=== PATIENT | female | born 1985 | race African-American/Black ===

== ENCOUNTER 2023-08-21 20:10 | Emergency (ER) | payer MEDICAID, SELFPAY ==
[2023-08-21 21:02] VITALS: BP 125/64; PULSE 98; RESP 18; TEMP 37.4; O2SAT 97; BMI 19.0
[2023-08-21 21:26] LABS: Basophils Percent Auto 0.3 % (0-2); Eosinophils Percent Auto 0.4 % (0-4); Hematocrit 36.7 % (37.0-47.0); Hemoglobin 12.2 g/dl (12.0-16.0); Imm Gran Abs Auto 0.02 X10*3/uL (0.00-0.03); Imm Gran Pct Auto 0.3 % (0.0-0.4); Lymphocytes Absolute Auto 0.8 X10*3/uL (1.2-4.9); Lymphocytes Percent Auto 10.7 % (20-40); MANUAL DIFF FLAG NO; Mean Corpuscular HGB Conc 33.2 g/dl (31.0-35.0); Mean Corpuscular Hemoglobin 26.9 pg (27.0-33.0); Mean Corpuscular Volume 80.8 fL (80.0-98.0); Mean Platelet Volume 9.2 fL (9.4-12.3); Monocytes Absolute Auto 1.3 X10*3/uL (0.1-1.2); Monocytes Percent Auto 16.8 % (2-11); Neutrophils Absolute Auto 5.5 x10*3/uL (2.0-8.3); Neutrophils Percent Auto 71.5 % (45-73); Platelet Count 183 X10*3/uL (160-400); Red Blood Count 4.54 X10*6/uL (4.20-5.50); Red Cell Distribution Width 14.5 % (11.0-16.0); White Blood Count 7.7 X10*3/uL (4.8-10.8)
[2023-08-21 21:35] LABS: IDNOW Serial# 08D9AD1C; Strep A Nucleic Acid Negative (Negative)
[2023-08-21 21:39] LABS: Alanine Aminotransferase 7 U/L (0-31); Albumin Level 3.6 g/dL (3.5-5.0); Alkaline Phosphatase 45 U/L (39-117); Anion Gap 16 (12-20); Aspartate Amino Transferase 15 U/L (5-31); Bilirubin Total 0.5 mg/dL (0.0-1.0); Blood Urea Nitrogen 9 mg/dL (9-16); COVID-19 Test Negative (Negative); Calcium 8.8 mg/dL (8.4-10.2); Carbon Dioxide 24 mmol/L (22-29); Chloride 100 mmol/L (96-108); Creatinine Clr Calc Pharmacy 99.1; Estimated Glomerular Filt Rate > 60; Glucose Random 153 mg/dL (60-115); IDNOW Serial# BCCEAD1C; Potassium 3.7 mmol/L (3.3-5.1); Sodium 136 mmol/L (135-145); Total Protein 6.9 g/dL (6.5-8.0)
--- NOTE | 2023-08-21 22:40 | ED_ITS ---
HPI - General Adult General Chief complaint: General Medical Stated complaint: Swollen lymph nodes, fever Time Seen by Provider: 08/21/23 22:40 Source: patient Mode of arrival: ambulatory Limitations: no limitations History of Present Illness HPI narrative: Patient's sore throat low-grade fever painful to swallow for last 3 days complaining of lymph nodes enlarged in the neck area no running nose no shortness of breath no significant cough no other family member sick patient has no nausea/vomiting/diarrhea patient had aseptic meningitis about 10 years ago and she is worried about same Related Data Previous Rx's Medication Instructions Recorded acetaminophen 500 mg tablet 500 mg PO Q6H PRN fever or pain 08/22/23 (Tylenol Extra Strength) #30 tabs amoxicillin 875 mg-potassium 1 tab PO BID #20 tabs 08/22/23 clavulanate 125 mg tablet Allergies Allergy/AdvReac Type Severity Reaction Status Date / Time No Known Allergies Allergy Verified 08/21/23 21:01 Review of Systems 2 Review of Systems: Yes all other systems are reviewed and are negative [facility] Social History Social History Alcohol intake: never Smoked in Last 30 Days: No Use of substances other than those prescribed or required for medical reasons: Yes Substance Use Type: Marijuana Advance Directives: No Advance Directives Information Provided: Yes Physical Exam ED Vital Signs: Vital Signs - 24 hr 08/21/23 21:02 08/21/23 23:31 08/22/23 02:30 Temperature 99.3 F 99.0 F 100.0 F Pulse Rate 98 90 101 H Respiratory Rate 18 16 16 Blood Pressure 125/64 97/65 109/53 L Pulse Oximetry 97 100 98 Oxygen Delivery Method Room Air Room Air Room Air BMI result Body Mass Index 19.0 Appearance: Alert. Oriented X3. No acute distress. Eyes: PERRLA, No Nystagmus ENT: Pharynx erythema. Oral Mucosa moist Neck: Normal inspection. Neck supple. Upper cervical lymphadenopathy neck is supple Kernig's negative CVS: Normal heart rate and rhythm. Pulses normal. Respiratory: No respiratory distress. Equal air entry bilateral, no wheezing/rales/rhonchi Abdomen: Soft and nontender. Bowel sounds are present, Skin: Skin warm and dry. Normal skin color. Normal skin turgor. Extremities: No lower extremity edema. No calf tenderness Neuro: Oriented X 3. No motor deficit. No sensory deficit.No cerebellar signs , cranial nerves II-XII intact Medications Administered Discontinued Medications Generic Name Dose Route Start Last Admin Trade Name Suzanne PRN Reason Stop Dose Admin Acetaminophen 650 mg 08/22/23 02:32 08/22/23 02:35 Acetaminophen 325 Mg Tablet PO 08/22/23 02:33 650 mg ONCE ONE Administration Amoxicillin/Clavulanate Potassium 875 mg 08/21/23 23:25 08/22/23 00:07 Amoxicillin/Potassium Clav 875 Mg Tablet PO 08/21/23 23:26 875 mg ONCE ONE Administration Ondansetron HCl 4 mg 08/22/23 02:05 08/22/23 02:27 Ondansetron Odt 4 Mg Tab.Rapdis TRANSLINGU 08/22/23 02:06 4 mg ONCE ONE Administration Medical Decision Making Lab Data [facility] Lab Attestation statement: I reviewed the patient's lab results. 08/21/23 21:19 08/21/23 21:19 Labs: Lab Results 08/21/23 08/21/23 Range/Units 21:19 23:36 WBC 7.7 (4.8-10.8) X10*3/uL RBC 4.54 (4.20-5.50) X10*6/uL Hgb 12.2 (12.0-16.0) g/dl Hct 36.7 L (37.0-47.0) % MCV 80.8 (80.0-98.0) fL MCH 26.9 L (27.0-33.0) pg MCHC 33.2 (31.0-35.0) g/dl RDW 14.5 (11.0-16.0) % Plt Count 183 (160-400) X10*3/uL MPV 9.2 L (9.4-12.3) fL Immature Gran % (Auto) 0.3 (0.0-0.4) % Neut % (Auto) 71.5 (45-73) % Lymph % (Auto) 10.7 L (20-40) % Mellette % (Auto) 16.8 H (2-11) % Eos % (Auto) 0.4 (0-4) % Baso % (Auto) 0.3 (0-2) % Lymph # (Auto) 0.8 L (1.2-4.9) X10*3/uL Mellette # (Auto) 1.3 H (0.1-1.2) X10*3/uL Eos # (Auto) 0.0 (0.0-0.4) X10*3/uL Baso # (Auto) 0.0 (0.0-0.2) X10*3/uL Abs Immat Gran (auto) 0.02 (0.00-0.03) X10*3/uL Absolute Neuts (auto) 5.5 (2.0-8.3) x10*3/uL Absolute Nucleated RBC 0.000 (0.0-0.012) X10*3/uL Nucleated RBC % (auto) 0.0 (0.0-0.2) /100WBC Sodium 136 (135-145) mmol/L Potassium 3.7 (3.3-5.1) mmol/L Chloride 100 (96-108) mmol/L Carbon Dioxide 24 (22-29) mmol/L Anion Gap 16 (12-20) BUN 9 (9-16) mg/dL Creatinine 0.73 (0.5-1.4) mg/dL Estim Creat Clear Calc 99.1 Estimated GFR > 60 Random Glucose 153 H (60-115) mg/dL Calcium 8.8 (8.4-10.2) mg/dL Total Bilirubin 0.5 (0.0-1.0) mg/dL AST 15 (5-31) U/L ALT 7 (0-31) U/L Alkaline Phosphatase 45 (39-117) U/L Total Protein 6.9 (6.5-8.0) g/dL Albumin 3.6 (3.5-5.0) g/dL COVID-19 (JAZMYNE) Negative (Negative) COVID-19 Clin Com See Note Monoscreen Negative (Negative) S. pyogenes GrpA CHERRI Negative (Negative) Discharge Plan Discharge Clinical Impression: Acute pharyngitis Patient Disposition: Home, Self-Care Instructions: Pharyngitis (ED) Additional Instructions: Drink plenty of fluids Take antibiotics as prescribed Follow with PCP if not better Prescriptions: New amoxicillin-pot clavulanate 875-125 mg tablet 1 tab PO BID Qty: 20 0RF acetaminophen [Tylenol Extra Strength] 500 mg tablet 500 mg PO Q6H PRN (Reason: fever or pain) Qty: 30 0RF Interventions: ED Discharge Assessment Last Done: 08/22/23 02:41 Discharge Date/Time: 08/22/23 02:43
[2023-08-21 23:31] VITALS: BP 97/65; PULSE 90; RESP 16; TEMP 37.2; O2SAT 100
[2023-08-21 23:56] LABS: Monotest Negative (Negative)
[2023-08-22] MEDS: Amoxicillin/Potassium Clav 875 MG TABLET PO (00:07)
[2023-08-22] MEDS: Ondansetron ODT 4 MG TAB.RAPDIS TRANSLINGU (02:27)
[2023-08-22 02:30] VITALS: BP 109/53; PULSE 101; RESP 16; TEMP 37.8; O2SAT 98
[2023-08-22] MEDS: Acetaminophen 325 MG TABLET 650 MG PO (02:35)
--- NOTE | 2023-08-22 02:42 | PC.NURSE ---
Dr. Espana informed of T 100.0 oral. Patient received Tylenol 650 mg PO prior to discharged home.
== END 2023-08-22 02:43 | disposition home or self-care (01) ==
PROVIDERS: Emergency Provider Internal Medicine
DX: J02.9 Acute pharyngitis, unspecified (principal); Z20.822 Contact with and (suspected) exposure to COVID-19; Z20.828 Contact with and (suspected) exposure to other viral communicable diseases; Z79.899 Other long term (current) drug therapy
CPT/HCPCS: 36415; 80053; 85025; 86308; 87635; 87651; 99283; 99284